=== PATIENT | female | born 2000 ===

== ENCOUNTER 2019-01-15 17:36 | Inpatient (IN) ==
[2019-01-15] MEDS ORDERED: Oxytocin 20 units/ LR 1000 mL 20 UNIT/1,000 ML BAG IVC SCH (18:15)
[2019-01-15] MEDS ORDERED: Ringers Solution, Lactated 1,000 ML IVC SCH (18:15)
[2019-01-15] MEDS ORDERED: Metoclopramide 10 MG/2 ML VIAL IVP PRN (18:15)
[2019-01-15] MEDS ORDERED: Famotidine 20 MG/2 ML VIAL IVP PRN (18:15)
[2019-01-15] MEDS ORDERED: Naloxone 0.4 MG/ML INJ IVP PRN ×2 (18:15→21:14)
[2019-01-15] MEDS ORDERED: Ondansetron 4 MG/2 ML VIAL IVP PRN ×2 (18:15→21:14)
[2019-01-15] MEDS ORDERED: Lidocaine 1% 20 ML MDV INFILT PRN (18:15)
[2019-01-15] MEDS ORDERED: *HR* Nalbuphine 10 MG/ML AMPUL IVP PRN (18:15)
[2019-01-15] MEDS ORDERED: Ringers Solution, Lactated 1,000 ML ONE (18:52)
[2019-01-15 19:07] LABS: Basophils % 0.2 %; Eosinophils % 0.1 %; Hematocrit 37.9 % (35.3-44.9); Hemoglobin 12.1 g/dL (11.5-15.4); Immature Granulocytes % 0.5 % (0-4); Lymphocytes # 1.6 K/mcL (0.6-4.6); Lymphocytes % 9.2 %; Mean Corpuscular HGB Conc 31.9 g/dL (31.6-35.5); Mean Corpuscular Hemoglobin 26.1 pg (28.0-33.3); Mean Corpuscular Volume 81.7 fL (83.0-100.0); Mean Platelet Volume 11.1 fL (9.4-12.4); Monocytes # 1.1 K/mcL (0.0-1.3); Monocytes % 6.5 %; Neutrophils # 14.1 K/mcL (1.6-8.9); Platelet Count 306 K/mcL (140-400); Red Blood Count 4.64 M/mcL (3.82-4.97); Red Cell Distribution Width 13.4 % (11.5-14.5); Segmented Neutrophils % 83.5 %; White Blood Count 16.9 K/mcL (4.3-11.1)
--- NOTE | 2019-01-15 19:14 | OB/GYN History & Physical ---
Date of Encounter: 01/15/19 Time of Encounter: 18:51 Assessment and Plan (1) 38 weeks gestation of Status: Acute 18yo at 38+3wks GA who presents SROM'd 1. SROM - SVE: 2-3/80/-2 - ruptured clear fluid this morning at 0900 - contraction(s) are mild, OK for epidural when patient desires - IV pitocin ordered, patient is still comfortable - GBS negative, VTX presentation - leopolds ~7# 2. MWB - afebrile - VSS, HDS - normotensive 3. FWB - good FM - S = D Dispo: Admission to labor and delivery for labor s/p SROM clear fluid. MD FELICIA History of Present Illness Chief complaint: SROM'D HPI: Ms. Feliz is a 18 year old female at 38+3wks GA who presents leaking fluid, having mild contraction(s) but comfortable. Patient it UTD with PNC (Dr Patrick). Hx or 1 prior SAB at 10 wks. Does have a family hx of Trisomy 21, normal anatomy US and genetic testing this . Scheduled for IOL at term on 01/27. Vertex presentation, GBS negative. PNC: GLUCOLA: 53 GBS NEGATIVE VARICELLA NONIMMUNE RUBELLA IMMUNE HBSAG NONREACTIVE HCV NEGATIVE HIV 1/2 Past Med Surg Social Fam HX - Past Medical History Medical history: no medical history Psychiatric history: no psych history - Past Surgical History Surgical History: no surgical history - Social History Smoking Status: Never smoker Smokeless Tobacco Status: No Alcohol use: none Drug use: none - Family History Mother Name: Pt. denies any family history Obstetrical History - Pregnancies : 2 Para: 0 Term: 0 : 0 Ab's: 1 Livin Medications and Allergies Pnv Plus Multivit Tab 1 tab PO DAILY 01/15/19 [History] Allergy/AdvReac Type Severity Reaction Status Date / Time No Known Allergies Allergy Verified 01/15/19 17:54 Exam - Constitutional Constitutional: well developed, well nourished, no acute distress, average body habitus - HEENT HEENT: Normocephaly, Mucus Membranes Moist - Neck Neck exam: full ROM - Lungs Respiratory exam: CTAB - Cardiovascular Cardiovascular exam: RRR - Abdomen Abdomen: Present: bowel sounds normal - Cervix Dilation: 2 Effacement: 80 Station: -2 - Uterus Uterus exam: Present: normal size, normal contour - Anus/Rectum Anus/Rectum: Present: normal perianal skin, heme negative Results All other labs normal. - VTE Reasons for not Prescribing Prophylaxis: Treatment not Indicated - Low risk for VTE
[2019-01-15 20:16] LABS: Amphetamine Screen,Urine Negative ng/mL (Cutoff=1000); Barbiturate Screen,Urine Negative ng/mL (Cutoff=200); Benzodiazepines Screen,Urine Negative ng/mL (Cutoff=200); Cannabinoid Screen,Urine Negative ng/mL (Cutoff = 50); Cocaine Screen,Urine Negative ng/mL (Cutoff= 300); Opiate Screen,Urine Negative ng/mL (Cutoff=300); Phencyclidine Screen,Urine Negative ng/mL (Cutoff=25)
[2019-01-15] MEDS ORDERED: EPHEDrine 50 MG/ML VIAL IVP PRN (21:14)
[2019-01-15] MEDS ORDERED: *HR* FentaNYL (PF) 100 MCG/2 ML VIAL EP ONE (21:14)
[2019-01-15] MEDS ORDERED: Ropivacaine/PF 0.2% 20 ML VIAL EP ONE (21:14)
[2019-01-15] MEDS ORDERED: Epidural Premix (fent/bupiv) 110 ML EP SCH (21:15)
--- NOTE | 2019-01-15 23:11 | Anesthesia Evaluation PreOp ---
Date of Encounter: 01/15/19 Time of Encounter: 22:10 - Past History Planned Operation: JYOTI Cardiac History: Denies any Significant Hx Pulmonary History: Denies Any Significant HX CHORAL DIRECTOR History: Denies Any Significant HX Other Medical History: Denies Any Significant HX Anesthesia History: No Prior Anesthetic Complications, Past Anesthesia (no past anesthetic history, no family history of anesthetic complications.) : Yes Alcohol Use: none Drug use: none Medications and Allergies Pnv Plus Multivit Tab 1 tab PO DAILY 01/15/19 [History] Allergy/AdvReac Type Severity Reaction Status Date / Time No Known Allergies Allergy Verified 01/15/19 17:54 - Meds/Allergy Pre-op Review Medications Reviewed: Yes Allergies Reviewed: Yes Beta Blockers on Current Med List: No Anesthesia Results - Labs 01/15/19 18:45 Anesthesia Exam BP 158/83 P 101 R 18 T 98.8 Height: 5'4" Weight: 70.8 NPO (# of Hours): 4 Pain Scale: 4 Pain Scale Used: Numeric (1 - 10) - HEENT Pupil (Motor): Pupils equal Mallampati: II Teeth: Normal Oral Opening: Greater than 3 - CHORAL DIRECTOR LOC: Oriented CHORAL DIRECTOR Motor: Normal RUE, Normal LUE, Normal RLE, Normal LLE, Normal Face CHORAL DIRECTOR Sensory: Normal: RUE, LUE, RLE, LLE, Face - Cardiac Rhythm: Regular Murmur: None JVD: No Carotid Bruit: No - Pulmonary Breath Sounds: bilateral Clear Respiratory Effort: Symmetrical Anesthesia Assess/Plan ASA Score: 2 Level of consciousness: Cooperative, Oriented, Tranquil Anesthetic Plan: Epidural Autologous Blood: No Monitoring Plan: Standard Monitors Recovery Plan: Other
--- NOTE | 2019-01-15 23:16 | Anesthesia Procedures ---
Date of Encounter: 01/15/19 Time of Encounter: 22:15 Procedures: Anesthesia - Epidural/Spinal Patient ID/Chart reviewed: Yes Patient examined: Yes OB Eval: Gestational age: 38.3 OB Eval: : 2 OB Eval: Hx Para: 0 OB Eval: Dilated at (cm): 3 OB Eval: Contractions: Non-stressed pattern Consent Obtained: Yes Supplemental Oxygen: None/Room Air Site Prep: Aseptic Technique, Sterile prep and drape, Povidone-Iodine 1% Patient position: upright Local Anesthetic: Lidocaine 1% Amount of Local Anesthetic used: 3 Touhy Needle Gauge: 18 Touhy Needle Depth (cm): 4 Catheter Depth at Skin (cm): 12 Test Dose (1.5% Lido + Epi): Volume given (mls): 3 Test Dose Result: Negative Loading Dose: Fentanyl (mcg): 100 Loading Dose: Other: Ropivicaine 0.2% 5ml, 3ml normal saline Loading Dose Administered: Thru Catheter Infusion Med: 0.125% Bupivacaine w/ 2 mcg/ml Fentanyl Infusion Rate (mls/hr): [address]: Tegaderm, Tape Interspace Used: L3-L4 Loss of Resistance (MELISA): Yes Blood: No CSF: No Paresthesia: No Procedure: JYOTI placed 1st pass in upright position. MELISA achieved with normal saline. Catheter threaded with ease to 12cm at the skin. Test dose negative. Pt stated comfort following bolus dose administration. VSS throughout. Vitals + FHT's: 2215 BP 158/83 P 101 R 18 2238 BP 141/81 P 80 R 16
--- NOTE | 2019-01-16 06:54 | Event Note ---
Date of Encounter: 01/16/19 Time of Encounter: 06:53 IV pitocin at 20, IUPC and FSE placed as patient was still /-2. Forebag was incidentally ruptured after FSE placement. CLEAR FLUID. Fetus tolerated well. MD FELICIA
[2019-01-16] MEDS ORDERED: Bupivacaine-MPF 0.25% 10 ML VIAL ONE (07:57)
[2019-01-16] MEDS ORDERED: *HR* FentaNYL (PF) 100 MCG/2 ML VIAL ONE (07:57)
--- NOTE | 2019-01-16 10:02 | Anesthesia Progress Note ---
Date of Encounter: 01/16/19 Time of Encounter: 09:00 Anesthesia Note - Note Note: 01/16/19 09:58 called to patient bedside to evaluate breakthrough labor pain. Patient reports pain that is left-sided. Catheter withdrawn to 9cm tunde at skin, patient positioned semi LLD, and bolus administered. Patient reports significant improvement in pain. However, a short time later was called back to room for intolerable labor pain on the L side. Two additional boluses (15min apart) of bupivicaine + fentanyl administered and patient reports no significant improvement. Catheter therefore withdrawn to 7cm tunde at skin and another bolus administered. Patient now reports noticeable improvement in pain on L side of abdomen. A total of 100mcg fentanyl and 20mL of 0.125% bupivicaine administered in boluses. VSS
[2019-01-16] MEDS ORDERED: CeFAZolin Premix DUPLEX 2,000 MG/50 ML BAG IVPB ONE (12:27)
--- NOTE | 2019-01-16 12:48 | OB/GYN Procedure Note ---
Delivery - Delivery Date: 01/16/19 Provider: Dipika Wheeler (Doreen Hidalgo [facility] assist) Intrapartum events: none Delivery induction: none Delivery augmentation: pitocin Delivery monitor: external FHT, external uterine, internal FHT, internal uterine Anesthesia: epidural Quantitated Blood Loss: 400 - Infant (s) A Delivery Date: 01/16/19 Infant Delivery Time: 12:02 Presentation: vertex Position: IRENE (compound left hand) Route of delivery: Gender: Female Viability: Viable Pounds: 7 Weight Gram: 3.185 kg at 1 minute: 8 at 5 mins: 9 Shoulder Dystocia: not encountered Specimens collected: cord blood Placenta: uterine exploration Cord: 3 umbilical vessels - Repair Episiotomy: none Laceration Description: Labial (bilateral hemostatic) - Complications Delivery complications: none Delivery comments: Patient progressed to complete and began coached pushing to of viable, vigorous female in the IRENE position with left compound hand. No nuchal, no meconium, and no shoulder dystocia encountered. placed on maternal abdomen, warmed, dried, and stimulated. Cord double clamped and cut after pulsations ceased with the assistance of FOB. Apgars 8 and 9 at one and five minutes of age respectively. Placenta delivered spontaneously and appears grossly intact with 3 vessel cord. Uterine atony and heavy bleeding noted after delivery of placenta; resolved with bimanual massage, uterine sweep, pitocin, methergine, and cytotec. Upon perineal inspection bilateral hemostatic labial lacerations are noted and left to heal by second intention. Fundus firm and at U/2 after inspection. EBL 400. and mother stable and in skin to skin for [address] Chinchilla notified of delivery. - Disposition Mom disposition: stable in LDR [place] disposition: stable in LDR
[2019-01-16] MEDS ORDERED: Benzocaine/Menthol 56 GM AEROSOL SPRAY TP PRN (14:00)
[2019-01-16] MEDS ORDERED: Methylergonovine 0.2 MG/ML AMPUL IM ONE (14:00)
[2019-01-16] MEDS ORDERED: Ondansetron ODT 4 MG TAB.RAPDIS SL PRN (14:00)
[2019-01-16] MEDS ORDERED: Oxytocin 20 units/ LR 1000 mL 20 UNIT/1,000 ML BAG IVC ONE (14:00)
[2019-01-16] MEDS ORDERED: miSOPROStol 100 MCG TABLET RC STA (14:00)
[2019-01-16] MEDS ORDERED: Oxytocin 20 units/ LR 1000 mL 20 UNIT/1,000 ML BAG IVC SCH (14:00)
[2019-01-16] MEDS: Acetaminophen 325 MG TABLET PO PRN ×2 (14:09→21:08)
[2019-01-16] MEDS: Ibuprofen 600 MG TABLET PO PRN (18:20)
[2019-01-17] MEDS: Acetaminophen 325 MG TABLET PO PRN (04:37)
[2019-01-17 05:56] LABS: Basophils % 0.2 %; Eosinophils % 0.2 %; Hematocrit 33.1 % (35.3-44.9); Immature Granulocytes % 0.6 % (0-4); Lymphocytes # 1.7 K/mcL (0.6-4.6); Mean Corpuscular HGB Conc 31.4 g/dL (31.6-35.5); Mean Corpuscular Hemoglobin 26.3 pg (28.0-33.3); Mean Corpuscular Volume 83.6 fL (83.0-100.0); Mean Platelet Volume 11.4 fL (9.4-12.4); Monocytes # 1.5 K/mcL (0.0-1.3); Monocytes % 9.6 %; Platelet Count 244 K/mcL (140-400); Red Blood Count 3.96 M/mcL (3.82-4.97); Red Cell Distribution Width 13.5 % (11.5-14.5); Segmented Neutrophils % 78.4 %; White Blood Count 15.3 K/mcL (4.3-11.1)
[2019-01-17] MEDS: Ibuprofen 600 MG TABLET PO PRN (05:57)
[2019-01-17 06:05] LABS: Hemoglobin 10.4 g/dL (11.5-15.4)
[2019-01-17 06:12] LABS: Alanine Aminotransferase 9 Units/L (7-52); Aspartate Amino Transferase 12 Units/L (13-39); BUN/Creatinine Ratio 13 (6-26); Blood Urea Nitrogen 8 mg/dL (6-20); Lactate Dehydrogenase 250 Units/L (140-271); Uric Acid 5.3 mg/dL (2.3-7.6); eGFR For African Americans > 60; eGFR For Non-African Americans > 60
[2019-01-17 07:45] VITALS: BP 127/82
--- NOTE | 2019-01-17 08:01 | Discharge Summary ---
Date of Encounter: 01/17/19 Time of Encounter: 07:59 - Discharge Diagnosis (1) Vaginal delivery Priority: Primary Status: Acute Comments: Continue routine care discharge home today follow up with Dr. Patrick in 4-6 weeks for visit - Discharge Medications Prescriptions: New Benzocaine/Menthol Guy [Dermoplast Guy] 1 appl TP QID PRN aerosol PRN Reason: See Comments Continued Pnv Plus Multivit Tab 1 tab PO DAILY Home Medications: Pnv Plus Multivit Tab 1 tab PO DAILY 01/15/19 [History] Benzocaine/Menthol Guy [Dermoplast Guy] 1 appl TP QID PRN aerosol 01/17/19 [Rx] Allergies/Adverse Reactions: Allergy/AdvReac Type Severity Reaction Status Date / Time No Known Allergies Allergy Verified 01/15/19 17:54 Data Procedures and tests throughout hospitalization: Laboratory Tests 01/15/19 01/15/19 01/17/19 18:25 18:45 05:15 WBC 16.9 H 15.3 H RBC 4.64 3.96 Hgb 12.1 10.4 L D Hct 37.9 33.1 L MCV 81.7 L 83.6 MCH 26.1 L 26.3 L MCHC 31.9 31.4 L RDW 13.4 13.5 Plt Count 306 244 MPV 11.1 11.4 Immature Gran % 0.5 0.6 Seg Neutrophils % 83.5 78.4 Lymphocytes % 9.2 11.0 Monocytes % 6.5 9.6 Eosinophils % 0.1 0.2 Basophils % 0.2 0.2 Neutrophils # 14.1 H 12.0 H Lymphocytes # 1.6 1.7 Monocytes # 1.1 1.5 H Eosinophils # 0.0 0.0 Basophils # 0.0 0.0 BUN Creatinine Est GFR ( Amer) Est GFR (Non-Af Amer) BUN/Creatinine Ratio Uric Acid AST ALT Lactate Dehydrogenase Urine Opiates Screen Negative Ur Buprenorphine Scrn Negative Ur Barbiturates Screen Negative Ur Phencyclidine Scrn Negative Ur Amphetamines Screen Negative U Benzodiazepines Scrn Negative Urine Cocaine Screen Negative U Marijuana (THC) Screen Negative Ur Drug Screen Interp See Below 01/17/19 05:15 WBC RBC Hgb Hct MCV MCH MCHC RDW Plt Count MPV Immature Gran % Seg Neutrophils % Lymphocytes % Monocytes % Eosinophils % Basophils % Neutrophils # Lymphocytes # Monocytes # Eosinophils # Basophils # BUN 8 Creatinine 0.63 Est GFR ( Amer) > 60 Est GFR (Non-Af Amer) > 60 BUN/Creatinine Ratio 13 Uric Acid 5.3 AST 12 L ALT 9 Lactate Dehydrogenase 250 Urine Opiates Screen Ur Buprenorphine Scrn Ur Barbiturates Screen Ur Phencyclidine Scrn Ur Amphetamines Screen U Benzodiazepines Scrn Urine Cocaine Screen U Marijuana (THC) Screen Ur Drug Screen Interp Labs on day of discharge: Labs from last 24 hours 01/17/19 01/17/19 05:15 05:15 WBC 15.3 H RBC 3.96 Hgb 10.4 L D Hct 33.1 L MCV 83.6 MCH 26.3 L MCHC 31.4 L RDW 13.5 Plt Count 244 MPV 11.4 Immature Gran % 0.6 Seg Neutrophils % 78.4 Lymphocytes % 11.0 Monocytes % 9.6 Eosinophils % 0.2 Basophils % 0.2 Neutrophils # 12.0 H Lymphocytes # 1.7 Monocytes # 1.5 H Eosinophils # 0.0 Basophils # 0.0 BUN 8 Creatinine 0.63 Est GFR ( Amer) > 60 Est GFR (Non-Af Amer) > 60 BUN/Creatinine Ratio 13 Uric Acid 5.3 AST 12 L ALT 9 Lactate Dehydrogenase 250 Date of admission: 01/15/19 18:15 Primary care physician: PCP NONE Consults: 01/16/19 14:00 Consult to Drag Seiner [CONS] Routine Comment: Vaginal delivery, consult needed Discharging clinician: Milka Pelayo Anticipated date of discharge: 01/17/19 - Patient Status Disposition: Home, Self-Care Condition: Good Functional capacity at discharge: independent ambulation - Discharge Instructions Follow Up With: NONE,PCP [Primary Care Provider] - Maia Patrick MD [Partnered Physician] - - Diet and Activity Activity: increase activity as tolerated Diet: regular diet Hospital Course Reason for admission: active labor Delivery: Episiotomy: none Laceration: other (bilateral labial lacerations) complications: uterine atony (methergine, cytotec given) Discharge diagnosis: IUP at term delivered baby: female (bottle feeding) Time Attestation: Total time spent providing and/or coordinating discharge services: Time Spent: Less than 30 minutes Exam - Constitutional Vitals: Temp Pulse Resp BP Pulse Ox 98.2 F 78 20 127/82 97 01/17/19 07:44 01/17/19 07:44 01/17/19 07:44 01/17/19 07:44 01/17/19 07:44 General appearance IM: A&O X 3, pleasant, answers questions appropriately - Respiratory Respiratory exam: Present: CTAB - Cardiovascular Cardiovascular exam IM: Present: RRR, +S1, +S2 - GI/Abdominal GI/Abdominal exam IM: normal bowel sounds - Uterine Tone: Firm Uterus Position: 2 Fingers Below Umbilicus, Midline - Extremities Exam Extremities exam IM: Present: full ROM, normal capillary refill, normal inspection - Neurological Exam Neurological exam: alert, oriented X3, reflexes normal
[2019-01-17] MEDS ORDERED: Prenatal Vit/FA 1 EACH TABLET PO SCH (09:00)
[2019-01-17] MEDS ORDERED: Methylergonovine 0.2 MG/ML AMPUL IM ONE (15:59)
== END 2019-01-17 16:00 | disposition home or self-care (01) | DRG 560 ==
LOC: 1NENULAB → UNDODISOB 17:36 → 1NENULAB 01-16 04:28 → 1NENUOBS 01-16 14:41
PROVIDERS: ADMIT Advanced Practice Midwife; ATTEND Advanced Practice Midwife